=== PATIENT | female | born 1980 | race Caucasian/White ===

== ENCOUNTER 2020-06-13 | Outpatient (CLI) | payer OTHER | END 2020-06-13 10:30 | disposition home or self-care (01) | LOC: PPH VACUNA | DX: Z23 Encounter for immunization (principal) ==

== ENCOUNTER 2021-03-21 13:10 | Outpatient (CLI) | payer OTHER | END 2021-03-21 13:30 | disposition home or self-care (01) | LOC: PPH VACUNA 13:10 | PROVIDERS: ATTEND Emergency Medicine Pediatric Emergency Medicine | DX: Z23 Encounter for immunization (principal) ==